=== PATIENT | female | born 1995 | race Caucasian/White ===

== ENCOUNTER → 2016-11-24 | Outpatient (CLI) | payer BC ==
[~2016-11-24] MED LIST: FLEXERIL10 MG PO; LORTAB 5-325 M1 EACH PO; MOTRIN800 MG PO; NAPROSYN500 MG PO; TRI-PREVIFEM1 EACH PO
== END | disposition home or self-care (01) ==
LOC: CDC 14:42
DX: E66.01 Morbid (severe) obesity due to excess calories (principal)
CPT/HCPCS: 93000